=== PATIENT | male | born 2000 | race Caucasian/White ===

== ENCOUNTER 2020-04-14 19:51 | Emergency (ER) | payer BC ==
[~2020-04-14] VITALS: Ht 177.8 cm; Wt 85.8 kg
[2020-04-14 20:57] VITALS: BP 141/81
== END 2020-04-14 20:57 | disposition home or self-care (01) | DRG 605 ==
LOC: ED 19:51
DX: S61.211A Laceration without foreign body of left index finger without damage to nail, initial encounter (principal); W45.8XXA Other foreign body or object entering through skin, initial encounter; Y93.G1 Activity, food preparation and clean up; Y92.000 Kitchen of unspecified non-institutional (private) residence as the place of occurrence of the external cause